=== PATIENT | male | born 1950 | race Two or more races ===

== ENCOUNTER 2025-06-15 18:32 | Inpatient (IN) | payer OTHER ==
[~2025-06-15] VITALS: Ht 172.7 cm; Wt 69.5 kg
--- NOTE | 2025-06-15 19:22 | ED.PDOC ---
Altered Mental Status HPI Comments 74-year-old male came to ER via EMS for altered level of consciousness. Per EMS patient picked up a correction, caregivers noted the patient has been aggressive recently. Patient does have history of dementia. Patient does speak Irish. No family members at bedside the provide more information at this time of care Chief Complaint: ALOC Time Seen by MD: 19:21 Reviewed Notes: Nurses Notes Information Source: Emergency Med Personnel Mode of Arrival: EMS Past Medical History PAST MEDICAL HISTORY: Dementia Surgical History: Unobtainable Family History Family History: Unobtainable Social History Smoker: Unobtainable Alcohol: Unobtainable Drugs: Unobtainable Lives In: Assisted Care Unable to Obtain due to: Dementia Physical Exam General Appearance: No Apparent Distress, Normal HEENT: Normal ENT Inspection, Pharynx Normal, TMs Normal Neck: Full Range of Motion, Non-Tender, Normal, Normal Inspection Respiratory: Chest Non-Tender, Lungs Clear, No Accessory Muscle Use, No Respiratory Distress, Normal Breath Sounds Cardiovascular: No Edema, No JVD, No Murmur, No Gallop, Normal Peripheral Pulses, Regular Rate/Rhythm Breast Exam: Deferred Gastrointestinal: No Organomegaly, Non Tender, No Pulsatile Mass, Normal Bowel Sounds, Soft Genitalia: Deferred Pelvic: Deferred Rectal: Deferred Extremities: No calf tenderness, Normal capillary refill, Normal inspection, Normal range of motion, Non-tender, No pedal edema Musculoskeletal : Apperance: Normal Neurologic: Alert, cash specialist II-XII nml as Tested, No Motor Deficits, Normal Affect, Normal Mood, No Sensory Deficits Cerebellar Function: Normal Reflexes: Normal Skin: Dry, Normal Color, Warm Lymphatic: No Adenopathy Was a procedure done? Was a procedure done?: No Differential Diagnosis (ALOC) Differential Diagnosis: Hypoglycemia, Encephalopathy Other Differential Diagnosis pt is demented. he does not know why he is here, does not have contact names or numbers for anyone. although pt as no complaints, he is clearly confused. he has no focal neurologic signs or symptoms, but it is unclear what his baseline is. he will be admitted for altered mentation, dementia with possible delirium X-Ray, Labs, Meds, VS Vital Signs Date Time Temp Pulse Resp B/P (MAP) Pulse Ox O2 Delivery O2 Flow Rate FiO2 06/15/25 18:34 98.2 98 18 170/89 95 98.2 Lab Test 06/15/25 19:16 Range/Units White Blood Count 10.8 4.4-10.8 10^3/uL Red Blood Count 4.97 4.5-5.90 10^6/uL Hemoglobin 14.8 13.5-17.5 g/dL Hematocrit 43.7 41.0-53.0 % Mean Corpuscular Volume 87.9 80.0-100.0 fL Mean Corpuscular Hemoglobin 29.8 28.0-32.0 pg Mean Corpuscular Hemoglobin Concent 33.9 32.0-36.0 g/dL Red Cell Distribution Width 13.2 11.8-14.3 % Platelet Count 309 140-450 10^3/uL Mean Platelet Volume 7.7 6.9-10.8 fL Neutrophils (%) (Auto) 80.8 H 37.0-80.0 % Lymphocytes (%) (Auto) 9.3 L 10.0-50.0 % Monocytes (%) (Auto) 8.5 0.0-12.0 % Eosinophils (%) (Auto) 0.6 0.0-7.0 % Basophils (%) (Auto) 0.8 0.0-2.0 % Neutrophils # (Auto) 8.7 H 1.6-8.6 10 ^3/uL Lymphocytes # (Auto) 1.0 0.4-5.4 10 ^3/uL Monocytes # (Auto) 0.9 0-1.3 10 ^3/uL Eosinophils # (Auto) 0.1 0-0.8 10 ^3/uL Basophils # (Auto) 0.1 0-0.2 10 ^3/uL Nucleated Red Blood Cells 0.0 % Sodium Level 140 136-145 mmol/L Potassium Level 3.6 3.5-5.1 mmol/L Chloride Level 105 98-107 mmol/L Carbon Dioxide Level 25 20-31 mmol/L Anion Gap 10 5-15 Blood Urea Nitrogen 14 9-23 mg/dL Creatinine 0.73 0.700-1.30 mg/dL Glomerular Filtration Rate Calc 95 >90 mL/min BUN/Creatinine Ratio 19.2 10.0-20.0 Serum Glucose 132 H 74-106 mg/dL Calcium Level 9.0 8.7-10.4 mg/dL Troponin I High Sensitivity 5 </=54 ng/L CHEST RADIOGRAPH Indication: palpitations Technique: Single frontal view of the chest was obtained Comparison: None FINDINGS: Lines and Tubes: None Lungs: No focal consolidation. Pleura: No effusion. No pneumothorax. Cardiomediastinal contours: Unremarkable Bones: Appear to be multiple old healed left rib fractures. Correlate with history of trauma. IMPRESSION: 1. No acute cardiopulmonary disease. Time of 1ST Reevaluation: 19:20 Reevaluation 1ST: Unchanged Patient Education/Counseling: Diagnosis, Treatment, Other (Patient speaks Irish) Family Education/Counseling: No Family Present SEPSIS Sepsis Screen Physician Orders Chest Xray 1 View (06/15/25 19:06) Continuous Ekg Monitoring 08,12,16,20,00,04 (06/15/25 19:06) Electrocardigram (06/15/25 19:06) Urinalysis (06/15/25 19:06) Vital Signs Date Time Temp Pulse Resp B/P (MAP) Pulse Ox O2 Delivery O2 Flow Rate FiO2 06/15/25 18:34 98.2 98 18 170/89 95 98.2 Laboratory Tests Test 06/15/25 19:16 White Blood Count 10.8 10^3/uL (4.4-10.8) Departure 1 Departure Time of Disposition: 21:54 Impression: Primary Impression: Dementia Additional Impressions: Delirium Altered mental state Disposition: ADMITTED INPATIENT Admit to: Med Surg Condition: Stable Critical Care Note Critical Care Time?: No Stability Stability form required: No Heart Score Heart Score: Heart Score Response (Comments) Value History N/A 0 EKG N/A 0 Age N/A 0 Risk Factors N/A 0 Troponin N/A 0 Total 0 I personally scribed for ROMIE PALOMINO MD ([email or web address]) on 06/15/25 at 19:22. Electronically submitted by Todd Ramsay ([email or web address]). I personally scribed for ROMIE PALOMINO MD ([email or web address]) on 06/15/25 at 20:09. Electronically submitted by Todd Ramsay ([email or web address]). I personally scribed for ROMIE PALOMINO MD ([email or web address]) on 06/15/25 at 20:36. Electronically submitted by Todd Ramsay ([email or web address]). I personally scribed for ROMIE PALOMINO MD ([email or web address]) on 06/15/25 at 21:19. Electronically submitted by Todd Ramsay ([facility]). ROMIE PALOMINO MD Jun 15, 2025 19:22
[2025-06-15 19:27] LABS: Hematocrit 43.7 % (41.0-53.0); Hemoglobin 14.8 g/dL (13.5-17.5); Mean Corpuscular Hemoglobin 29.8 pg (28.0-32.0); Mean Corpuscular Volume 87.9 fL (80.0-100.0); Nucleated Red Blood Cells % 0.0 %
[2025-06-15 19:38] LABS: Chloride 105 mmol/L (98-107); Potassium 3.6 mmol/L (3.5-5.1); Sodium 140 mmol/L (136-145)
[2025-06-15 19:39] LABS: Anion Gap 10 (5-15); Calcium 9.0 mg/dL (8.7-10.4); Carbon Dioxide 25 mmol/L (20-31)
[2025-06-15 19:44] LABS: BUN/Creatinine Ratio 19.2 (10.0-20.0); Blood Urea Nitrogen 14 mg/dL (9-23)
[2025-06-15 19:49] LABS: Glucose 132 mg/dL (74-106)
--- NOTE | 2025-06-15 20:00 | DVH ---
CHEST RADIOGRAPH Indication: palpitations Technique: Single frontal view of the chest was obtained Comparison: None FINDINGS: Lines and Tubes: None Lungs: No focal consolidation. Pleura: No effusion. No pneumothorax. Cardiomediastinal contours: Unremarkable Bones: Appear to be multiple old healed left rib fractures. Correlate with history of trauma. IMPRESSION: 1. No acute cardiopulmonary disease.
--- NOTE | 2025-06-15 23:52 | DVHHPRES ---
History of Present Illness Resident Creating Document: SHORTY CALHOUN RESIDENT History of Present Illness This is a 74-year-old male past medical history of dementia brought by EMS due to altered level of consciousness. As per patient, family member called 911 and sent patient to ER for evaluation due to he was aggressive at home. During evaluation in ER, patient looks anxious, poor historian likely due to language barrier. Patient give continuously standing and sitting on chair, talking irrelevantly when asked any question. Denies any past medical history or surgical history. Patient denies any fever, cough, SOB, chest pain, abdominal pain, dysuria or any focal weakness. Past medical history: Dementia Past surgical history: Nothing contributory Family history" nothing unable Personal history: Smoking cigarettes daily but denies any EtOH or illicit drug use Allergic: NKA PCP: Dr. Good ([facility]) Review of Systems Constitutional: Yes: Malaise; No: Fever, Chills, Sweats, Weakness, Other Eyes: No: Pain, Vision change, Conjunctivae inflammation, Eyelid inflammation, Other, Redness ENT: No: Ear pain, Ear discharge, Nose pain, Nose discharge, Nose congestion, Mouth pain, Mouth swelling, Throat pain, Throat swelling, Other Respiratory: No: Cough, Dry, Shortness of breath, SOB with excertion, Wheezing, Hemoptysis, Pleuritic Pain, Sputum, Wheezing, Other Cardiovascular: No: Chest Pain, Palpitations, Orthopnea, Paroxysmal Noc. Dyspnea, Edema, Lt Headedness, Other Gastrointestinal: No: Nausea, Vomiting, Abdominal Pain, Diarrhea, Constipation, Melena, Hematochezia, Other Genitourinary: No Dysuria, No Frequency, No Incontinence, No Hematuria, No Retention, No Other Musculoskeletal: No: other, neck pain, shoulder pain, arm pain, back pain, hand pain, leg pain, foot pain Skin: No: Rash, Lesions, Jaundice, Bruising, Other Neurological: Change in speech, Other (Looks anxious ); No: Weakness, Numbness, Incoordination, Confusion, Seizures Exam Vital Signs Vital Signs Date Time Temp Pulse Resp B/P (MAP) Pulse Ox O2 Delivery O2 Flow Rate FiO2 06/15/25 18:34 98.2 98 18 170/89 95 98.2 General Appearance: Oriented X3, Cooperative HEENT: Atraumatic, PERRLA, EOMI, Mucous membr. moist/pink Respiratory: Clear to auscultation, Normal air movement Cardiovascular: Regular rate, Normal S1, No murmurs Abdominal: Normal bowel sounds, Soft, No tenderness Extremities: No clubbing, No cyanosis, No edema, Normal pulses Skin: No rashes, No breakdown Neuro: Normal gait, Strength at 5/5 X4 ext, Sensation intact, Other (Looks anxious) Psych/Mental Status: Other (Unable to evaluate mental status due to patient looks anxious and occasionally agitated.) Labs/Xrays Labs Test 06/15/25 19:16 Range/Units White Blood Count 10.8 4.4-10.8 10^3/uL Red Blood Count 4.97 4.5-5.90 10^6/uL Hemoglobin 14.8 13.5-17.5 g/dL Hematocrit 43.7 41.0-53.0 % Mean Corpuscular Volume 87.9 80.0-100.0 fL Mean Corpuscular Hemoglobin 29.8 28.0-32.0 pg Mean Corpuscular Hemoglobin Concent 33.9 32.0-36.0 g/dL Red Cell Distribution Width 13.2 11.8-14.3 % Platelet Count 309 140-450 10^3/uL Mean Platelet Volume 7.7 6.9-10.8 fL Neutrophils (%) (Auto) 80.8 H 37.0-80.0 % Lymphocytes (%) (Auto) 9.3 L 10.0-50.0 % Monocytes (%) (Auto) 8.5 0.0-12.0 % Eosinophils (%) (Auto) 0.6 0.0-7.0 % Basophils (%) (Auto) 0.8 0.0-2.0 % Neutrophils # (Auto) 8.7 H 1.6-8.6 10 ^3/uL Lymphocytes # (Auto) 1.0 0.4-5.4 10 ^3/uL Monocytes # (Auto) 0.9 0-1.3 10 ^3/uL Eosinophils # (Auto) 0.1 0-0.8 10 ^3/uL Basophils # (Auto) 0.1 0-0.2 10 ^3/uL Nucleated Red Blood Cells 0.0 % Sodium Level 140 136-145 mmol/L Potassium Level 3.6 3.5-5.1 mmol/L Chloride Level 105 98-107 mmol/L Carbon Dioxide Level 25 20-31 mmol/L Anion Gap 10 5-15 Blood Urea Nitrogen 14 9-23 mg/dL Creatinine 0.73 0.700-1.30 mg/dL Glomerular Filtration Rate Calc 95 >90 mL/min BUN/Creatinine Ratio 19.2 10.0-20.0 Serum Glucose 132 H 74-106 mg/dL Calcium Level 9.0 8.7-10.4 mg/dL Troponin I High Sensitivity 5 </=54 ng/L SEPSIS Sepsis Screen Date sepsis recognized/suspect: Jun 15, 2025 Time Sepsis recognized/suspect: 1833 Recent Procedure: No On Antibiotic Therapy: No Respiratory Rate >20: No Heart Rate >90: Yes Temp<36 C (96.8 F) or >38.3 C: No SBP <90 or MAP <65 mmHG: No New Acute Mental Status Change: No Is the patient on CPAP, BIPAP,: No Physician Orders Chest Xray 1 View (06/15/25 19:06) Continuous Ekg Monitoring 08,12,16,20,00,04 (06/15/25 19:06) Electrocardigram (06/15/25 19:06) Urinalysis (06/15/25 19:06) Admit (06/15/25 23:48) Code Status (06/15/25 23:48) Notify Md Of Changes From Base (06/15/25 23:48) Urinalysis (06/15/25 23:48) Drug Screen (06/15/25 23:48) Vital Signs Date Time Temp Pulse Resp B/P (MAP) Pulse Ox O2 Delivery O2 Flow Rate FiO2 06/15/25 18:34 98.2 98 18 170/89 95 98.2 Laboratory Tests Test 06/15/25 19:16 White Blood Count 10.8 10^3/uL (4.4-10.8) Assessment/Plan Assessment/Plan Acute metabolic encephalopathy likely due to worsening dementia Rule out substance abuse Troponin: 5 EKG: CXR: no acute cardiopulmonary disease No leukocytosis but left-shifted. UA UDS Blood Alcohol Neuro check Essential hypertension On admission BP 170/89 Monitor BP Started Losartan Prediabetes Hemoglobin A1c 5.9 Avoid sugar and sugar containing diet Vitamin-D deficiency Vitamin-D 14548 units weekly Mild transaminitis ALT 97 Monitor LFT Diet: Cardiac GI prophylaxis: Pantoprazole DVT prophylaxis: Lovenox Goals of care discussion. More than 29 minute spent with patient. Full code status. Call family member -primary team for more information and medication reconciliation. Case discussed with Dr. Rueda. Plan discussed with: Patient, Other (Nurse) My Orders Orders - SHORTY CALHOUN Procedure Category Date Status Time Admit ADMIT 06/15/25 Transmitted 23:48 Code Status CODE 06/15/25 Transmitted 23:48 Notify Md Of Changes KAREEN 06/15/25 Transmitted From Base 23:48 Urinalysis LAB 06/15/25 Transmitted 23:48 Drug Screen LAB 06/15/25 Transmitted 23:48 Visit Coding STANDARD RES Billing Provider: SHELDON RUEDA MD Date of Service if different f: Jun 15, 2025 Common Visit Codes: 55065-[id number] INP/OBS CARE (HIGH) Secondary Visit Codes: 03590-[id number] CARE PLAN 30 MINUTES SHORTY CALHOUN Jun 15, 2025 23:52
[2025-06-16 00:59] LABS: Alanine Aminotransferase 79 U/L (7-40); Albumin 4.8 g/dL (3.2-4.8); Alkaline Phosphatase 104 U/L (46-116); Anion Gap 10 (5-15); BUN/Creatinine Ratio 23.4 (10.0-20.0); Bilirubin, Total 0.8 mg/dL (0.2-1.0); Blood Urea Nitrogen 15 mg/dL (9-23); Calcium 9.5 mg/dL (8.7-10.4); Carbon Dioxide 26 mmol/L (20-31); Chloride 105 mmol/L (98-107); Glucose 133 mg/dL (74-106); Potassium 3.5 mmol/L (3.5-5.1); Sodium 141 mmol/L (136-145); Total Protein 7.3 g/dL (5.7-8.2)
[2025-06-16] MEDS: LOSARTAN POTASSIUM 50 MG TAB PO ONE (06:48)
[2025-06-16] MEDS: PANTOPRAZOLE 40 MG TAB PO SCH (06:48)
[2025-06-16] MEDS: ERGOCALCIFEROL 50,000 UNIT(1.25MG) CAP PO SCH (10:00)
[2025-06-16] MEDS: ENOXAPARIN SOD 40 MG/0.4 ML SYRINGE SC SCH (10:00)
[2025-06-16] MEDS ORDERED: HYDR25TA5 GT (13:57)
[2025-06-16] MEDS ORDERED: LOSA-534 PO (13:57)
[2025-06-16] MEDS: hydroCHLOROthiazide 25 MG TAB PO SCH (14:00)
[2025-06-16] MEDS ORDERED: LOS25T PO (14:00)
--- NOTE | 2025-06-16 14:01 | DVHDS2 ---
Discharge Summary Date of Admission Jun 15, 2025 at 23:48 Date of Discharge: Jun 16, 2025 Labs/Diagnostic Data: Laboratory Results Test 06/16/25 00:30 06/15/25 19:16 Sodium Level 141 mmol/L (136-145) Potassium Level 3.5 mmol/L (3.5-5.1) Chloride Level 105 mmol/L (98-107) Carbon Dioxide Level 26 mmol/L (20-31) Anion Gap 10 (5-15) Blood Urea Nitrogen 15 mg/dL (9-23) Creatinine 0.64 mg/dL (0.700-1.30) Glomerular Filtration Rate Calc 99 mL/min (>90) BUN/Creatinine Ratio 23.4 (10.0-20.0) Serum Glucose 133 mg/dL (74-106) Calcium Level 9.5 mg/dL (8.7-10.4) Total Bilirubin 0.8 mg/dL (0.2-1.0) Aspartate Amino Transferase (AST) 28 U/L (13-40) Alanine Aminotransferase (ALT) 79 U/L (7-40) Alkaline Phosphatase 104 U/L (46-116) Total Protein 7.3 g/dL (5.7-8.2) Albumin 4.8 g/dL (3.2-4.8) Plasma/Serum Blood Alcohol < 3.0 mg/dL (<10) White Blood Count 10.8 10^3/uL (4.4-10.8) Red Blood Count 4.97 10^6/uL (4.5-5.90) Hemoglobin 14.8 g/dL (13.5-17.5) Hematocrit 43.7 % (41.0-53.0) Mean Corpuscular Volume 87.9 fL (80.0-100.0) Mean Corpuscular Hemoglobin 29.8 pg (28.0-32.0) Mean Corpuscular Hemoglobin Concent 33.9 g/dL (32.0-36.0) Red Cell Distribution Width 13.2 % (11.8-14.3) Platelet Count 309 10^3/uL (140-450) Mean Platelet Volume 7.7 fL (6.9-10.8) Neutrophils (%) (Auto) 80.8 % (37.0-80.0) Lymphocytes (%) (Auto) 9.3 % (10.0-50.0) Monocytes (%) (Auto) 8.5 % (0.0-12.0) Eosinophils (%) (Auto) 0.6 % (0.0-7.0) Basophils (%) (Auto) 0.8 % (0.0-2.0) Neutrophils # (Auto) 8.7 10 ^3/uL (1.6-8.6) Lymphocytes # (Auto) 1.0 10 ^3/uL (0.4-5.4) Monocytes # (Auto) 0.9 10 ^3/uL (0-1.3) Eosinophils # (Auto) 0.1 10 ^3/uL (0-0.8) Basophils # (Auto) 0.1 10 ^3/uL (0-0.2) Nucleated Red Blood Cells 0.0 % Hemoglobin A1c 5.9 % A1C (<5.7) Troponin I High Sensitivity 5 ng/L (</=54) Vitamin B12 Level > 2000 pg/mL (211-911) Vitamin D 25-Hydroxy 24.3 ng/mL (30.0-100) Other Laboratory Tests 06/16/25 00:30 06/15/25 19:16 Condition at Discharge: Stable Final Diagnosis/Problems List 1. Acute metabolic encephalopathy, resolved 2. Cognitive decline 3. Chronic tobacco use disorder 4. Hypertension Discharge Disposition: [facility]idential [facility] Discharge Will this Physician continue t: No Discharge Instruct/Medications Diet: Cardiac 2g Na,low cholest Activity: No Restrictions, As Tolerated Follow Up/Referral: Please follow up with the PCP in one week Medications: New prescription as prescribed. New Medications: Hctz (Hydrochlorothiazide) 25 Mg Tab 25 MG GT DAILY, #30 TAB Losartan Potassium (Losartan Potassium) 25 Mg Tab 25 MG PO DAILY, #30 TAB Scheduled Aspirin (Aspirin), 81 MG PO DAILY, (Reported) Atorvastatin Calcium (Atorvastatin Calcium), 1 TAB PO DAILY, (Reported) Cyclobenzaprine Hcl (Cyclobenzaprine Hcl), 5 MG PO PRN, (Reported) Donepezil Hydrochloride (Donepezil Hcl), 5 MG PO DAILY, (Reported) Hctz (Hydrochlorothiazide), 25 MG GT DAILY Losartan Potassium (Losartan Potassium), 25 MG PO DAILY Memantine Hydrochloride (Memantine HCl), 10 MG PO BID, (Reported) Quetiapine Fumerate (Quetiapine Fumarate), 50 MG PO HS, (Reported) Tamsulosin Hcl (Tamsulosin Hcl), 0.4 MG PO QPM, (Reported) Discharge Statement: "Patient was advised to return to the ER or call 911 if any headaches, dizziness, shortness of breath, chest pain, abdominal pain, bleeding, fevers, or worsening of medical condition. Patient was counseled about treatment plan, medications, possible side effects, patientverbalized understanding. All questions were answered to the best of my ability. This discharge took greater then 30 minutes in planning, reviewing documentation, counseling the patient, and discussing with other team members." ASSESSMENT ASSESSMENT Assessment 1. Acute metabolic encephalopathy, resolved 2. Cognitive decline 3. Chronic tobacco use disorder 4. Hypertension Date of Service: Jun 16, 2025 Billing Provider: MELA WELSH MD, PARAMJIT MD Jun 16, 2025 14:01
[2025-06-16 14:26] VITALS: BP 164/104; PULSE 58; RESP 17; O2SAT 95
[2025-06-16 16:35] VITALS: BP 161/96; PULSE 72; RESP 20; TEMP 98.6; O2SAT 94
[2025-06-16] MEDS ORDERED: TAMS0.4C39 PO (17:38)
[2025-06-16] MEDS ORDERED: DONE5TAB80 PO (17:38)
[2025-06-16] MEDS ORDERED: ATOR20TA50 PO (17:38)
[2025-06-16] MEDS ORDERED: ASPI325T6 PO (17:38)
[2025-06-16] MEDS ORDERED: QUET100T47 PO (17:38)
[2025-06-16] MEDS ORDERED: CYCL-839 PO (17:38)
[2025-06-16] MEDS ORDERED: MEMA1TAB5 PO (17:38)
--- NOTE | 2025-06-16 17:43 | DVHPN2 ---
Subjective Patient is here for altered mental status as per family patient is very aggressive at home. Patient is complaining of visual hallucinations. Changes from previous H/P or p: No Changes Eyes: No Pain, No Vision change, No Conjunctivae inflammation, No Eyelid inflammation, No Other, No Redness ENT: No Ear pain, No Ear discharge, No Nose pain, No Nose discharge, No Nose congestion, No Mouth pain, No Mouth swelling, No Throat pain, No Throat swelling, No Other Cardiovascular: No Chest Pain, No Palpitations, No Orthopnea, No Paroxysmal Noc. Dyspnea, No Edema, No Lt Headedness, No Other Respiratory: No Cough, No Dry, No Shortness of breath, No SOB with excertion, No Wheezing, No Hemoptysis, No Pleuritic Pain, No Sputum, No Other Gastrointestinal: No Nausea, No Vomiting, No Abdominal Pain, No Diarrhea, No Constipation, No Melena, No Hematochezia, No Other Genitourinary: No Dysuria, No Frequency, No Incontinence, No Hematuria, No Retention, No Other Musculoskeletal: No other, No neck pain, No shoulder pain, No arm pain, No back pain, No hand pain, No leg pain, No foot pain Skin: No Rash, No Lesions, No Jaundice, No Bruising, No Other Objective Vitals Vital Signs Date Time Temp Pulse Resp B/P (MAP) Pulse Ox O2 Delivery O2 Flow Rate FiO2 06/16/25 16:35 98.6 72 20 161/96 (117) 94 98.6 06/16/25 14:26 Room Air* 0 21 Exam HEENT pupils are reactive Neck is supple CV is S1-S2 regular rate and rhythm Respiratory diminished breath sounds at bases GI positive bowel sound Extremity no edema COLLETER no motor deficit Medications Current Medications Medications Dose Ordered Sig/Danii Route Start Time Stop Time Status Last Admin Dose Admin Losartan Potassium 50 mg DAILY PO 06/17/25 10:00 Pantoprazole Sodium 40 mg DAILY@0600 PO 06/16/25 06:00 Enoxaparin Sodium 40 mg DAILY SC 06/16/25 10:00 Ergocalciferol 50,000 unit Q7D PO 06/16/25 10:00 Hydrochlorothiazide 25 mg DAILY PO 06/16/25 14:00 06/16/25 16:22 25 MG Laboratory Results Laboratory Tests 06/15/25 19:16 06/16/25 00:30 Chemistry Test 06/15/25 19:16 06/16/25 00:30 Calcium Level 9.0 mg/dL (8.7-10.4) 9.5 mg/dL (8.7-10.4) Albumin 4.8 g/dL (3.2-4.8) Total Protein 7.3 g/dL (5.7-8.2) LFT Test 06/16/25 00:30 Alanine Aminotransferase (ALT) 79 U/L (7-40) H Alkaline Phosphatase 104 U/L (46-116) Aspartate Amino Transferase (AST) 28 U/L (13-40) Total Bilirubin 0.8 mg/dL (0.2-1.0) HgA1c, TSH Test 06/15/25 19:16 Hemoglobin A1c 5.9 % A1C (<5.7) H Assessment/Plan Assessment/Plan 74-year-old male with a no significant past medical history except cognitive decline presented to the hospital with altered mental status 1. 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 Hypertensive urgency 4. Visual hallucinations -add hypertensive meds, tele psych evaluation, patient is unstable to be transferred to [place]. Plan discussed with: Patient, Other My Orders Orders - MELA WELSH MD Procedure Category Date Status Time * Referral Specialist CONS 06/16/25 Transmitted Consult 13:54 Hydrochlorothiazide PHA 06/16/25 In Process Tablet (Hydrochlorot 14:00 * Neurology Consult CONS 06/16/25 Transmitted 17:38 Soc Telemed Psych CONS 06/16/25 Transmitted Consult 17:38 Problem List: (1) Delirium (2) Dementia (3) Altered mental state Date of Service: Jun 16, 2025 Billing Provider: MELA WELSH MD Common Visit Codes: [id number] INP/OBS CARE(HIGH) MELA WELSH MD Jun 16, 2025 17:43
[2025-06-16 20:00] VITALS: PULSE 98; RESP 17; O2SAT 98
[2025-06-16 21:00] VITALS: BP 137/80; PULSE 98; RESP 17; TEMP 97.3; O2SAT 98
[2025-06-17 01:00] VITALS: BP 141/77; PULSE 80; RESP 19; TEMP 98; O2SAT 96
[2025-06-17 05:00] VITALS: BP 144/94; PULSE 103; RESP 19; TEMP 98; O2SAT 94
[2025-06-17] MEDS: LOSARTAN POTASSIUM 50 MG TAB PO SCH (10:24)
[2025-06-17 12:35] VITALS: BP 106/70; PULSE 101; RESP 21; TEMP 98.4; O2SAT 96
[2025-06-17 16:41] VITALS: BP 113/70; PULSE 84; RESP 16; TEMP 98.5; O2SAT 95
--- NOTE | 2025-06-17 16:46 | DVHDS2 ---
Discharge Summary Date of Admission Jun 15, 2025 at 23:48 Date of Discharge: Jun 16, 2025 Labs/Diagnostic Data: Laboratory Results Test 06/16/25 00:30 06/15/25 19:16 Sodium Level 141 mmol/L (136-145) Potassium Level 3.5 mmol/L (3.5-5.1) Chloride Level 105 mmol/L (98-107) Carbon Dioxide Level 26 mmol/L (20-31) Anion Gap 10 (5-15) Blood Urea Nitrogen 15 mg/dL (9-23) Creatinine 0.64 mg/dL (0.700-1.30) Glomerular Filtration Rate Calc 99 mL/min (>90) BUN/Creatinine Ratio 23.4 (10.0-20.0) Serum Glucose 133 mg/dL (74-106) Calcium Level 9.5 mg/dL (8.7-10.4) Total Bilirubin 0.8 mg/dL (0.2-1.0) Aspartate Amino Transferase (AST) 28 U/L (13-40) Alanine Aminotransferase (ALT) 79 U/L (7-40) Alkaline Phosphatase 104 U/L (46-116) Total Protein 7.3 g/dL (5.7-8.2) Albumin 4.8 g/dL (3.2-4.8) Plasma/Serum Blood Alcohol < 3.0 mg/dL (<10) White Blood Count 10.8 10^3/uL (4.4-10.8) Red Blood Count 4.97 10^6/uL (4.5-5.90) Hemoglobin 14.8 g/dL (13.5-17.5) Hematocrit 43.7 % (41.0-53.0) Mean Corpuscular Volume 87.9 fL (80.0-100.0) Mean Corpuscular Hemoglobin 29.8 pg (28.0-32.0) Mean Corpuscular Hemoglobin Concent 33.9 g/dL (32.0-36.0) Red Cell Distribution Width 13.2 % (11.8-14.3) Platelet Count 309 10^3/uL (140-450) Mean Platelet Volume 7.7 fL (6.9-10.8) Neutrophils (%) (Auto) 80.8 % (37.0-80.0) Lymphocytes (%) (Auto) 9.3 % (10.0-50.0) Monocytes (%) (Auto) 8.5 % (0.0-12.0) Eosinophils (%) (Auto) 0.6 % (0.0-7.0) Basophils (%) (Auto) 0.8 % (0.0-2.0) Neutrophils # (Auto) 8.7 10 ^3/uL (1.6-8.6) Lymphocytes # (Auto) 1.0 10 ^3/uL (0.4-5.4) Monocytes # (Auto) 0.9 10 ^3/uL (0-1.3) Eosinophils # (Auto) 0.1 10 ^3/uL (0-0.8) Basophils # (Auto) 0.1 10 ^3/uL (0-0.2) Nucleated Red Blood Cells 0.0 % Hemoglobin A1c 5.9 % A1C (<5.7) Troponin I High Sensitivity 5 ng/L (</=54) Vitamin B12 Level > 2000 pg/mL (211-911) Vitamin D 25-Hydroxy 24.3 ng/mL (30.0-100) Other Laboratory Tests 06/16/25 00:30 06/15/25 19:16 Brief Hx & Hospital Course: 74-year-old male with a no significant past medical history except vascular dementia presented to the hospital with altered mental status patient was found to have acute metabolic encephalopathy. Patient is only Pashto language speaking. Patient's son was called by me on the phone who told me that patient is very paranoid. And he is sometimes can be very aggressive. As patient's has a [employer] insurance I explained in the weekend transferred to [facility] once bed is available. Patient can be transferred to [facility] once the except as patient needs Neurology as well as psych evaluation as an inpatient. Patient's has a hypertensive urgency started on some hypertensive meds. Condition at Discharge: Stable Final Diagnosis/Problems List 1. Acute metabolic encephalopathy 2. Acute paranoia 2. Cognitive decline 3. Chronic tobacco use disorder 4. Hypertension Discharge Disposition: Acute Care Facility SNF Discharge Will this Physician continue t: No Discharge Instruct/Medications Diet: Cardiac 2g Na,low cholest Activity: No Restrictions, As Tolerated Follow Up/Referral: Please follow up with a [facility] New Medications: Hctz (Hydrochlorothiazide) 25 Mg Tab 25 MG GT DAILY, #30 TAB Losartan Potassium (Losartan Potassium) 25 Mg Tab 25 MG PO DAILY, #30 TAB Scheduled Aspirin (Aspirin), 81 MG PO DAILY, (Reported) Atorvastatin Calcium (Atorvastatin Calcium), 1 TAB PO DAILY, (Reported) Cyclobenzaprine Hcl (Cyclobenzaprine Hcl), 5 MG PO PRN, (Reported) Donepezil Hydrochloride (Donepezil Hcl), 5 MG PO DAILY, (Reported) Hctz (Hydrochlorothiazide), 25 MG GT DAILY Losartan Potassium (Losartan Potassium), 25 MG PO DAILY Memantine Hydrochloride (Memantine HCl), 10 MG PO BID, (Reported) Quetiapine Fumerate (Quetiapine Fumarate), 50 MG PO HS, (Reported) Tamsulosin Hcl (Tamsulosin Hcl), 0.4 MG PO QPM, (Reported) Discharge Statement: "Patient was advised to return to the ER or call 911 if any headaches, dizziness, shortness of breath, chest pain, abdominal pain, bleeding, fevers, or worsening of medical condition. Patient was counseled about treatment plan, medications, possible side effects, patientverbalized understanding. All questions were answered to the best of my ability. This discharge took greater then 30 minutes in planning, reviewing documentation, counseling the patient, and discussing with other team members." ASSESSMENT ASSESSMENT Assessment 1. Acute metabolic encephalopathy 2. Acute paranoia 2. Cognitive decline 3. Chronic tobacco use disorder 4. Hypertension Date of Service: Jun 17, 2025 Billing Provider: MELA WELSH MD Common Visit Codes: 74668-IUS/OBS DISCH DAY >30min MELA WELSH MD Jun 17, 2025 16:46
[2025-06-17 20:00] VITALS: PULSE 113; RESP 19; O2SAT 95
[2025-06-17 21:00] VITALS: BP 125/85; PULSE 113; RESP 19; TEMP 98.3; O2SAT 95
[2025-06-18 01:00] VITALS: BP 120/80; PULSE 89; RESP 19; TEMP 98; O2SAT 97
== END 2025-06-18 02:20 | disposition short-term general hospital (02) | DRG 71 ==
LOC: ER 18:32 → EDBD 18:32 → OVERFLOW 23:48 → WEST WING 06-16 14:22
PROVIDERS: ATTEND Internal Medicine
DX: G93.41 Metabolic encephalopathy (principal); F01.52 Vascular dementia, unspecified severity, with psychotic disturbance; F23 Brief psychotic disorder; I16.0 Hypertensive urgency; R73.03 Prediabetes; I10 Essential (primary) hypertension; E55.9 Vitamin D deficiency, unspecified; R74.01 Elevation of levels of liver transaminase levels; F17.200 Nicotine dependence, unspecified, uncomplicated; Z79.899 Other long term (current) drug therapy
CPT/HCPCS: 36415; 71045; 80048; 80053; 80320; 82306; 82607; 83036; 84484; 85025; G0378